=== PATIENT | male | born 1970 | race Caucasian/White ===

== ENCOUNTER 2021-02-27 08:14 | Emergency (ER) | payer BC, SELFPAY ==
--- NOTE | 2021-02-27 08:18 | ED.EAR ---
HPI - Ear Problem General Stated complaint: Possible Ear Infection Time Seen by Provider: 02/27/21 08:18 Source: patient and RN notes reviewed History of Present Illness HPI Narrative: Patient is a 51-year-old male who presents the urgent care with complaints of right ear pain since yesterday. Patient states that he was [place]. Reports of drainage. Denies any fever, chills, nausea, vomiting. Denies of any upper respiratory complaints. Patient has been taking aspirin. No other acute complaints. No acute distress noted. Patient read the plan of care. Some parts of this dictation were generated by voice recognition software and may contain typographical and/or grammatical inaccuracies. Related Data Allergies Allergy/AdvReac Type Severity Reaction Status Date / Time No Known Allergies Allergy Verified 02/27/21 08:35 Review of Systems Review of Systems: Narrative: CONSTITUTIONAL: Denies fever, chills, or sweats. EYES: Denies visual changes, redness, or discharge. ENT: Denies rhinorrhea, congestion, sore throat. Reports of right otalgia CARDIOVASCULAR: Denies chest pain, palpitations, or edema. RESPIRATORY: Denies cough or dyspnea. GASTROINTESTINAL: Denies abdominal pain, nausea, vomiting, or diarrhea. GENITOURINARY: Denies dysuria or hematuria. SKIN: Denies rash or itching. MUSCULOSKELETAL: Denies back pain, joint pain, or myalgia. NEUROLOGIC: Denies headache, numbness, or weakness. All other systems reviewed are negative, except as documented in HPI. PMFSH Comments At the time of my signature, I reviewed and agree with the nursing past medical, surgical, social, and family history. There is no relevant family history pertinent to the patient complaint. Exam Narrative: Exam Narrative: GENERAL: This is a well-nourished, well-developed patient, in no apparent distress. HEAD: normocephalic, atraumatic. EYES: PERRL. Sclera clear/white. Vision is grossly intact. EARS: External ears normal, mild edema and moderate erythema with scant clear drainage to the right auditory canal, left auditory canal clear and without drainage, moderately injected erythemic right TM without perforation, left TM normal without perforation. Hearing grossly intact. NOSE: External nose normal with no obvious nasal discharge, nares without redness, no rhinorrhea. THROAT: Mucous membranes moist, posterior pharynx clear. NECK: Neck supple CARDIOVASCULAR: Regular rate and rhythm without murmurs, gallops, or rubs. RESPIRATORY: Clear to auscultation. Breath sounds equal bilaterally. No wheezes, rales, or rhonchi. SKIN: warm, intact with no suspicious lesions or rash, good texture and turgor. NEURO: awake, alert, and oriented to person, place and time. There were no obvious focal neurologic abnormalities. EXTREMITIES: No clubbing, cyanosis, or edema. Course Vital Signs Vital signs: Vital Signs Temperature 98.9 F 02/27/21 08:26 Pulse Rate 74 02/27/21 08:26 Respiratory Rate 20 02/27/21 08:26 Blood Pressure 140/77 02/27/21 08:26 Pulse Oximetry 100 02/27/21 08:26 Temperature 98.9 F 02/27/21 08:26 Pulse Rate 74 02/27/21 08:26 Respiratory Rate 20 02/27/21 08:26 Blood Pressure 140/77 02/27/21 08:26 Pulse Oximetry 100 02/27/21 08:26 Reviewed Medical Decision Making MDM Narrative Medical decision making narrative: Advised the patient to use eardrops to the right ear as directed. Be sure to finish the prescription. Do not put anything in the ear such as peroxide, Q-tips, water, earplugs. Do not submerge her head under any body of water for the next 7 to 10 days. May use Tylenol/ibuprofen as needed for pain. May also use
[2021-02-27 08:26] VITALS: BP 140/77; PULSE 74; RESP 20; TEMP 37.2; O2SAT 100
== END 2021-02-27 08:49 | disposition home or self-care (01) ==
PROVIDERS: Emergency Provider Nurse Practitioner Family
DX: H60.91 Unspecified otitis externa, right ear (principal); H66.91 Otitis media, unspecified, right ear
CPT/HCPCS: 99213; G0463

== ENCOUNTER 2021-02-28 11:23 | Emergency (ER) | payer BC, SELFPAY ==
[2021-02-28 11:27] VITALS: BP 147/85; PULSE 89; RESP 20; TEMP 37.2; O2SAT 100
[2021-02-28 11:39] VITALS: BP 147/85; PULSE 89; RESP 20; TEMP 37.2; O2SAT 100
--- NOTE | 2021-02-28 12:04 | ED.EAR ---
HPI - Ear Problem General Chief complaint: Ear Stated complaint: ear pain Source: patient and RN notes reviewed Limitations: no limitations History of Present Illness HPI Narrative: The patient, previously mostly healthy on minimal medications, presents with wound/ear check. Patient states that he was seen for otitis externa and treated with Floxin drops. He has been taking OTC pain meds but has continued pain. No fever, blood, facial weakness/numbness, diabetes/immunocompromise history Related Data Allergies Allergy/AdvReac Type Severity Reaction Status Date / Time No Known Allergies Allergy Verified 02/28/21 11:38 Review of Systems Review of Systems: Narrative: The patient has been informed that they may have pre-hypertension or Hypertension based on a BP reading in the department. I recommend that the patient call the primary care provider listed on their discharge instructions or a physician of their choice this week to arrange follow up for further evaluation of possible pre-hypertension or Hypertension General/Constitutional: No weight loss,fever Eyes: N0: Redness,discharge Ears/Nose/Throat: No: Epistaxis, REPORTS ear discharge Respiratory: Denies: Hemoptysis PMFSH Comments At time of signature, agree with nursing past medical, surgical, social and family history. There is no relevant family history pertinent to the presenting complaint Exam Narrative: Exam Narrative: General Appearance: Well appearing, EYE: PERRLA ,EOMI Ears: Right EAC with mucopus, left external ear normal& Auditory canal normal Nose: Normal nose, Nares clear Mouth/Throat: Normal appearing, Normal lips, Supple, Respiratory: Airway patent, No respiratory distress Skin: Warm, Dry Neurological: A&O x3, , Normal affect Course Vital Signs Vital signs: Vital Signs Temperature 99 F 02/28/21 11:27 Pulse Rate 89 02/28/21 11:27 Respiratory Rate 02/28/21 11:27 Blood Pressure 147/85 H 02/28/21 11:27 Pulse Oximetry 100 02/28/21 11:27 Temperature 99 F 02/28/21 11:39 Pulse Rate 89 02/28/21 11:39 Respiratory Rate 20 02/28/21 11:39 Blood Pressure 147/85 H 02/28/21 11:39 Pulse Oximetry 100 02/28/21 11:39 Medical Decision Making Vital Signs Vital Signs: Vital Signs Temperature 99 F 02/28/21 11:27 Pulse Rate 89 02/28/21 11:27 Respiratory Rate 20 02/28/21 11:27 Blood Pressure 147/85 H 02/28/21 11:27 Pulse Oximetry 100 02/28/21 11:27 Temperature 99 F 02/28/21 11:39 Pulse Rate 89 02/28/21 11:39 Respiratory Rate 02/28/21 11:39 Blood Pressure 147/85 H 02/28/21 11:39 Pulse Oximetry 100 02/28/21 11:39 Discharge Plan Discharge Clinical Impression: Encounter for wound re-check Patient Disposition: Home, Self-Care Condition: Stable Prescriptions: New tramadol 50 mg tablet 50 - 75 mg PO TID PRN (Reason: pain) Qty: 20 RF: 0 No Action ofloxacin 0.3 % drops 10 drp EACH EAR BID 14 Days Qty: 10 RF: 0 amoxicillin 875 mg tablet 875 mg PO Q12H Qty: 20 RF: 0 Follow-up/Referrals: PHYSICIAN,EMERGENCY DEPARTMENT AIDE [Primary Care Provider] -
== END 2021-02-28 12:10 | disposition home or self-care (01) ==
PROVIDERS: Emergency Provider Emergency Medicine
DX: H92.09 Otalgia, unspecified ear (principal)
CPT/HCPCS: 99213; G0463